=== PATIENT | female | born 1995 | race Caucasian/White ===

== ENCOUNTER 2020-02-04 14:38 | Emergency (ER) | payer OTHER, SELFPAY ==
[2020-02-04 14:50] VITALS: BP 126/85; PULSE 81; RESP 18; TEMP 36.6; O2SAT 100
--- NOTE | 2020-02-04 15:05 | ED.GENADULT ---
HPI - General Adult General Chief complaint: Headache Stated complaint: vomiting/headache Time Seen by Provider: 02/04/20 15:06 Source: patient Mode of arrival: ambulatory Limitations: no limitations History of Present Illness HPI narrative: 24-year-old female patient presents to the [facility] with complaints of migraine. Patient states she has a history of migraine and has since she was 6. Patient states that she does have medication prescribed by her doctor for migraines however her problem today is that she has been vomiting and has not been able to stop vomiting or to keep down her medications. Patient states that her migraine started about 3 AM today. Patient states she has a little bit of sensitivity to the light as well as sound. Patient is in the room on her cell phone at the time of exam. Patient states she has not been able to take her medications. Patient states she does have Zofran prescribed to her at home but states has not been helping requesting a shot for the nausea. Related Data Home Medications Medication Instructions Recorded Confirmed norethindrone-ethin estradiol tablet 02/04/20 [Nortrel (28)] Allergies Allergy/AdvReac Type Severity Reaction Status Date / Time No Known Allergies Allergy Verified 11/30/18 09:32 Review of Systems Review of Systems: Narrative: CONSTITUTIONAL: Denies fever, chills, or sweats. EYES: Denies visual changes, redness, or discharge. ENT: Denies rhinorrhea, congestion, sore throat, or otalgia. CARDIOVASCULAR: Denies chest pain, palpitations, or edema. RESPIRATORY: Denies cough or dyspnea. GASTROINTESTINAL: Denies abdominal pain, positive nausea, vomiting, denies diarrhea. GENITOURINARY: Denies dysuria or hematuria. SKIN: Denies rash or itching. MUSCULOSKELETAL: Denies back pain, joint pain, or myalgia. NEUROLOGIC: Positive headache, denies numbness, or weakness. PSYCHIATRIC: Denies anxiety or depression. PMFSH Comments At the time of my signature I agree with nursing past medical history, surgical, social, and family history. There is no relevant family history pertinent to the presenting complaint. Exam Narrative: Exam Narrative: GENERAL: Well-appearing, well-nourished, and in no acute distress. HEAD: Normocephalic, atraumatic. EYES: PERRLA and EOMI. ENT: Nares clear, no rhinorrhea or epistaxis. Mucous membranes moist. NECK: Supple. No lymphadenopathy CHEST: Clear to auscultation. No respiratory distress. HEART: Regular rate and rhythm. No murmur heard. Normal peripheral pulses. ABDOMEN: Soft, nontender, nondistended, normal active bowel sounds. EXTREMITIES: Normal range of motion. No edema. SKIN: Warm, dry, no rash. NEURO: Alert and oriented x4, GCS 15. Cranial nerves II through XII grossly intact. No focal neurological deficits. Normal muscle strength and tone. Normal deep tendon reflexes. Negative Babinski, normal finger to nose coordination he had normal heel to solis glide. Speech is clear. Normal gait. Negative Romberg and no pronator drift Course Reevaluation(s) Reevaluation #1: Reevaluated patient after giving her the ODT Zofran. Patient continues to vomit and is unable to keep anything down. Discussed with her that at this point I think that the next step would be to take her to the emergency department so that she can get IV fluids and IV medication. Patient is in agreement with this plan of care. Patient requesting to go [facility] emergency department for further evaluation and treatment. Date: 02/04/20 Time: 15:32 Vital Signs Vital signs: Vital Signs Temperature 36.6 C 02/04/20 14:50 Pulse Rate 81 02/04/20 14:50 Respiratory Rate 18 02/04/20 14:50 Blood Pressure 126/85 02/04/20 14:50 Pulse Oximetry 100 02/04/20 14:50 Temperature 36.6 C 02/04/20 14:50 Pulse Rate 81 02/04/20 14:50 Respiratory Rate 18 02/04/20 14:50 Blood Pressure 126/85 02/04/20 14:50 Pulse Oximetry 100 02/04/20 14:50 Vital sign
[2020-02-04] MEDS: ONDANSETRON HCL ODT 4 MG TABLET PO (15:17)
--- NOTE | 2020-02-04 15:29 | PC.NURSE ---
staff electrical engineer stated pt requested to go to [facility] for further evaluation. staff electrical engineer concerned may need iv intervention. is intermittently retching but no emesis.
--- NOTE | 2020-02-04 15:31 | PC.NURSE ---
engraver copperplate gave provider to provider report and no further report needed.
== END 2020-02-04 15:35 | disposition short-term general hospital (02) ==
PROVIDERS: Emergency Provider Nurse Practitioner Family; PCP Internal Medicine
DX: G43.909 Migraine, unspecified, not intractable, without status migrainosus (principal); R11.10 Vomiting, unspecified; R03.0 Elevated blood-pressure reading, without diagnosis of hypertension
CPT/HCPCS: 99213; A9270; G0463

== ENCOUNTER 2021-09-27 17:33 | Emergency (ER) | payer OTHER, SELFPAY ==
[2021-09-27 17:44] VITALS: BP 118/72; PULSE 77; RESP 16; TEMP 37.3; O2SAT 99
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
== END 2021-09-27 18:59 | disposition short-term general hospital (02) ==
PROVIDERS: Emergency Provider Nurse Practitioner
DX: R55 Syncope and collapse (principal); R11.2 Nausea with vomiting, unspecified; R19.7 Diarrhea, unspecified; M41.9 Scoliosis, unspecified
CPT/HCPCS: 99213; G0463

== ENCOUNTER 2024-03-21 12:59 | Emergency (ER) | payer OTHER, SELFPAY ==
--- NOTE | ~2024-03-21 | XR_ITS ---
EXAMINATION: XR foot LT min 3V DATE: 03/21/2024 13:32 INDICATION: Left foot pain and swelling. Fall. TECHNIQUE: 4 views of left foot were obtained. COMPARISON: None. FINDINGS: Bone alignment is normal. No fracture. Joint spaces are normal. IMPRESSION: 1. No fracture. Reviewed, dictated and finalized at location A. IMPRESSION: 1. No fracture.
[2024-03-21 13:19] VITALS: BP 129/78; PULSE 83; RESP 16; TEMP 36.9; O2SAT 100
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
== END 2024-03-21 14:00 | disposition home or self-care (01) ==
PROVIDERS: Emergency Provider Nurse Practitioner Family; PCP Internal Medicine
DX: S93.602A Unspecified sprain of left foot, initial encounter (principal); X50.9XXA Other and unspecified overexertion or strenuous movements or postures, initial encounter
CPT/HCPCS: 73630; 99213; G0463